=== PATIENT | female | born 1990 | race Caucasian/White ===

== ENCOUNTER → 2022-08-17 10:11 | Outpatient (BNVA) | payer MEDICAID, SELFPAY | PROVIDERS: PCP Internal Medicine; Visit Provider Surgery | DX: Z01.818 Encounter for other preprocedural examination (principal); L72.0 Epidermal cyst | CPT/HCPCS: 99202 ==

== ENCOUNTER 2022-09-21 10:36 | Outpatient (REF) | payer MEDICAID, SELFPAY ==
[2022-09-21 10:42] VITALS: BMI 43.2
[2022-09-21 10:43] VITALS: BP 132/70; PULSE 86; RESP 16; TEMP 36.5; O2SAT 98
[2022-09-21 11:12] VITALS: BP 134/73; PULSE 92; RESP 16; O2SAT 97
--- NOTE | 2022-09-21 11:26 | W.PM.OPN ---
Operative Note Operative Note Date of Service: 09/21/22 Narrative: Preoperative diagnosis: Epidermal inclusion cyst bridge of nose Postoperative diagnosis: Same Procedure: Excision of epidermal inclusion cyst bridge of nose Surgeon: Alex Younger MD Manager Epic: None Anesthesia: Local Sensorcaine 0.5% with epi Indications for procedure: 32-year-old female presenting with a slowly enlarging skin lesion of the bridge of nose which appears to be a epidermal inclusion cyst measuring approximately 3 mm in diameter. Operative findings: 4 mm pigmented skin lesion at the bridge of nose excised with 1 mm margin Specimen: Skin lesion bridge of nose Estimated blood loss: Less than 1 mL Complications: None Procedure details: Patient was brought to the minor surgery suite placed in a supine position in a slightly sitting position. The site of surgery confirmed by the patient at the bridge of the nose. After assuring informed consent the skin was prepped with Betadine and draped in a sterile fashion. Local anesthesia was then infiltrated around the lesion. An elliptical incision was then created oriented longitudinally over the bridge of nose. This was carried out through subcutaneous tissue and around the lesion. The lesion was completely excised and passed off the table. Lesion was sent to pathology for further examination. Skin was then closed using interrupted 5 0 nylon sutures. Bacitracin ointment was applied as a dressing. The patient tolerated the procedure well. She was discharged to home in stable condition.
== END 2022-09-21 10:37 | disposition home or self-care (01) ==
LOC: HO.MS 10:36
PROVIDERS: PCP Internal Medicine; Visit Provider Surgery
PROC: (CPT 11441; principal; 2022-09-21 11:00)
DX: L72.0 Epidermal cyst (principal)
CPT/HCPCS: 11441; 88304

== ENCOUNTER → 2022-09-29 09:36 | Outpatient (BNVA) | payer MEDICAID, SELFPAY | PROVIDERS: PCP Internal Medicine; Referring Provider Internal Medicine; Visit Provider Surgery | DX: Z13.89 Encounter for screening for other disorder (principal) ==